=== PATIENT | male | born 1990 ===

== ENCOUNTER 2021-09-12 06:18 | Day surgery (SDC) | payer OTHER ==
[2021-09-12] MEDS ORDERED: POLY119PG PO (13:01)
[2021-09-12] MEDS ORDERED: NEURONTIN600 M1 PO (13:01)
[2021-09-12] MEDS ORDERED: PERCOCET 5-3251 EACH PO (13:01)
== END 2021-09-12 15:50 | disposition home or self-care (01) ==
LOC: CIR.AMB 06:18
PROVIDERS: ATTEND Surgery
DX: K40.90 Unilateral inguinal hernia, without obstruction or gangrene, not specified as recurrent (principal); E66.9 Obesity, unspecified

== ENCOUNTER 2021-09-13 06:30 | Emergency (ER) | payer OTHER ==
[~2021-09-13] VITALS: Ht 167.6 cm; Wt 108.0 kg
[~2021-09-13 06:30] MED LIST: NEURONTIN600 M1 PO; PERCOCET 5-3251 EACH PO; POLY119PG PO
== END 2021-09-13 10:05 | disposition home or self-care (01) ==
LOC: ER 06:30
DX: R60.9 Edema, unspecified (principal)